=== PATIENT | male | born 1940 | race Caucasian/White ===

== ENCOUNTER 2017-06-03 13:32 | Inpatient (IN) | payer MEDICARE, OTHER ==
[~2017-06-03] VITALS: Ht 180.3 cm; Wt 75.0 kg
[~2017-06-03 13:32] MED LIST: ACET650T13; ALBU90AE; ASPI-611 PO; ATOR40TA72; CHOL100046 PO; FERR325T39 PO; GUAI473S11 PO; OMEP40CA37 PO; RIVA20TA PO; SENN-61 PO; [UNRECOGNIZED DRUG - CODE] PO; calcium chloride 100 MG/1 ML inj IV ONE; epiNEPHrine 0.1mg/ml 10ml syringe ONE; sodium bicarbonate (8.4%) 1 mEq/ml syringe ONE
[2017-06-03] MEDS ORDERED: pantoprazole 40 MG vial IV ONE (13:50)
[2017-06-03] MEDS ORDERED: normal saline 1000ML IV soln IVB ONE (13:50)
[2017-06-03 14:01] LABS: BASOPHILS # (AUTO) 0.1 X10'3 (0-0.2); BASOPHILS % (AUTO) 0.8 % (0-1); EOSINOPHILS # (AUTO) 0.2 X10'3 (0-0.9); EOSINOPHILS % (AUTO) 2.2 % (0-6); HEMATOCRIT 38.1 % (42.0-52.0); HEMOGLOBIN 13.5 g/dl (14.0-17.9); LYMPHOCYTES # (AUTO) 0.8 X10'3 (1.1-4.8); MEAN CORPUSCULAR HEMOGLOBIN 32.4 PG (27.0-31.0); MEAN CORPUSCULAR HGB CONC 35.4 % (33.0-36.5); MEAN CORPUSCULAR VOLUME 91.5 FL (78-98); MEAN PLATELET VOLUME 7.4 FL (7.4-10.4); MONOCYTES # (AUTO) 0.7 X10'3 (0-0.9); MONOCYTES % (AUTO) 6.9 % (2-12); NEUTROPHILS # (AUTO) 8.8 X10'3 (1.8-7.7); NEUTROPHILS % (AUTO) 82.1 % (42-75); PLATELET COUNT 212 X10'3 (140-440); RED BLOOD COUNT 4.16 X10'6 (4.70-6.10); RED CELL DISTRIBUTION WIDTH 13.9 % (11.5-14.5); WHITE BLOOD COUNT 10.7 X10'3 (4.5-11.0)
[2017-06-03 14:12] LABS: PARTIAL THROMBOPLASTIN TIME 26 SECONDS (22-32); PROTHROMBIN TIME 10.4 SECONDS (9.0-12.0)
[2017-06-03 14:16] LABS: ALANINE AMINOTRANSFERASE 21 U/L (12-78); ALBUMIN 3.2 G/DL (3.4-5.0); ALKALINE PHOSPHATASE 59 IU/L (46-116); ANION GAP 4 (8-16); ASPARTATE AMINO TRANSFERASE 20 U/L (10-37); BILIRUBIN,TOTAL 0.6 MG/DL (0.1-1.0); BLOOD UREA NITROGEN 23 MG/DL (7-18); BUN/CREATININE RATIO 20.9 (5.4-32.0); CALCIUM 8.5 MG/DL (8.5-10.1); CHLORIDE 96 MMOL/L (99-107); GLUCOSE 127 MG/DL (70-104); LIPASE 98 U/L (73-393); MAGNESIUM 1.9 MG/DL (1.5-2.4); POTASSIUM 4.9 MMOL/L (3.5-5.1); SODIUM 127 MMOL/L (135-145); TOTAL CARBON DIOXIDE 27.2 MMOL/L (24-32); TOTAL PROTEIN 6.5 G/DL (6.4-8.2); eGFR 65 ML/MIN
[2017-06-03] MEDS ORDERED: metoclopramide 5 mg/ml inj IV PRN (15:25)
[2017-06-03] MEDS ORDERED: acetaminophen 325mg tablet PO PRN (15:25)
[2017-06-03] MEDS ORDERED: magnesium 2GM in 50ml NS 50 ML IV PRN (15:25)
[2017-06-03] MEDS ORDERED: magnesium hydroxide 30ml (MOM) UD suspension PO PRN (15:25)
[2017-06-03] MEDS ORDERED: potassium Cl 20 mEq SR tablet PO PRN ×2 (15:25)
[2017-06-03] MEDS ORDERED: morphine 2 MG/ML inj. syringe IV PRN (15:25)
[2017-06-03] MEDS ORDERED: ondansetron/PF 4mg/2ml inj IV PRN (15:25)
[2017-06-03] MEDS ORDERED: potassium Cl 40MEQ/NS 500ml 500 ML IV PRN ×2 (15:25)
[2017-06-03] MEDS ORDERED: magnesium Cl slow-release 64mg tablet PO PRN (15:25)
[2017-06-03] MEDS ORDERED: mag hydrox/Alum hydrox/simeth 30ml oral suspension PO PRN (15:25)
[2017-06-03] MEDS ORDERED: HYDROmorphone 1 mg/ml syringe IV PRN (15:25)
[2017-06-03] MEDS ORDERED: magnesium 4gm in 100ml NS 100 ML IV PRN (15:25)
[2017-06-03] MEDS ORDERED: HYDROmorphone 2mg/ml vial IV PRN (15:28)
[2017-06-03 15:33] LABS: OCCULT BLOOD STOOL POSITIVE (Neg)
[2017-06-03] MEDS: normal saline 1000ml 1,000 ML IV SCH (17:31)
[2017-06-03 19:20] LABS: CLARITY,URINE SLIGHTLY CLOUDY (Clear); COLOR,URINE YELLOW (Yellow); GLUCOSE, URINE NEGATIVE (Neg); KETONES,URINE TRACE mg/dl (Neg); LEUKOCYTE ESTERASE ,URINE MODERATE (Neg); NITRITES, URINE POSITIVE (Neg); OCCULT BLOOD,URINE LARGE (Neg); PROTEIN,URINE NEGATIVE (Neg); UROBILINOGEN,URINE 0.2 E.U/dL (0.2-1.0)
[2017-06-03 19:26] LABS: UA COLLECTION TYPE CLN CATCH MIDSTREAM
[2017-06-03 19:28] LABS: AMORPHOUS URATES 2+; BACTERIA,URINE 3+ /HPF (Neg); MUCUS STRANDS NONE SEEN /LPF (Neg); RBC,URINE 50-100 /HPF (0-2); SQUAMOUS EPITHELIAL CELL,UR FEW /LPF (FEW); WBC,URINE 20-30 /HPF (0-4)
[2017-06-03] MEDS: pantoprazole 40 MG vial IV SCH (20:27)
[2017-06-03 21:00] VITALS: BP 138/68
[2017-06-04] VITALS (21 sets, daily range): BP systolic 50–150; BP diastolic 34–97
[2017-06-04] MEDS: normal saline 1000ml 1,000 ML IV SCH ×3 (01:23→21:22)
[2017-06-04 05:48] LABS: BASOPHILS # (AUTO) 0.1 X10'3 (0-0.2); BASOPHILS % (AUTO) 0.7 % (0-1); EOSINOPHILS # (AUTO) 0.3 X10'3 (0-0.9); EOSINOPHILS % (AUTO) 4.1 % (0-6); HEMATOCRIT 37.9 % (42.0-52.0); LYMPHOCYTES # (AUTO) 1.3 X10'3 (1.1-4.8); LYMPHOCYTES % (AUTO) 15.9 % (21-51); MEAN CORPUSCULAR HEMOGLOBIN 32.5 PG (27.0-31.0); MEAN CORPUSCULAR HGB CONC 34.3 % (33.0-36.5); MEAN CORPUSCULAR VOLUME 94.8 FL (78-98); MONOCYTES # (AUTO) 0.9 X10'3 (0-0.9); MONOCYTES % (AUTO) 11.3 % (2-12); NEUTROPHILS # (AUTO) 5.5 X10'3 (1.8-7.7); PLATELET COUNT 228 X10'3 (140-440); RED CELL DISTRIBUTION WIDTH 14.1 % (11.5-14.5); WHITE BLOOD COUNT 8.1 X10'3 (4.5-11.0)
[2017-06-04 05:53] LABS: ALBUMIN 3.1 G/DL (3.4-5.0); ANION GAP 6 (8-16); BLOOD UREA NITROGEN 24 MG/DL (7-18); CALCIUM 8.4 MG/DL (8.5-10.1); CHLORIDE 102 MMOL/L (99-107); GLUCOSE 82 MG/DL (70-104); MAGNESIUM 1.8 MG/DL (1.5-2.4); POTASSIUM 4.3 MMOL/L (3.5-5.1); SODIUM 132 MMOL/L (135-145); TOTAL CARBON DIOXIDE 23.7 MMOL/L (24-32); eGFR > 90 ML/MIN
[2017-06-04] MEDS ORDERED: K and/or MAG REPLACEMENT MC SCH (08:00)
[2017-06-04] MEDS: pantoprazole 40 MG vial IV SCH (09:18)
[2017-06-04] MEDS ORDERED: normal saline 1000ml 1,000 ML IV SCH (13:01)
[2017-06-04] MEDS ORDERED: fentaNYL/PF 50MCG/1 ML 2ML syringe IV PRN (13:05)
[2017-06-04] MEDS ORDERED: MIDAZolam 1mg/ml 10ml vial IV PRN (13:05)
[2017-06-04] MEDS ORDERED: simethicone 40mg/0.6ml oral drops 30ml MC ONE (13:05)
[2017-06-04] MEDS ORDERED: LIDOcaine Viscous 15ml cup PO ONE (13:05)
[2017-06-04] MEDS ORDERED: LIDOcaine Viscous 15ml cup ONE (14:17)
[2017-06-04] MEDS ORDERED: MIDAZolam 1mg/ml 10ml vial ONE (14:17)
[2017-06-04] MEDS ORDERED: fentaNYL/PF 50MCG/1 ML 2ML syringe ONE (14:17)
[2017-06-04] MEDS ORDERED: morphine 5 MG/ML injection IV PRN (17:17)
[2017-06-04 19:20] LABS: HEMATOCRIT 31.6 % (42.0-52.0); HEMOGLOBIN 10.7 g/dl (14.0-17.9); MEAN CORPUSCULAR VOLUME 94.1 FL (78-98); MEAN PLATELET VOLUME 7.5 FL (7.4-10.4); PLATELET COUNT 212 X10'3 (140-440); RED BLOOD COUNT 3.36 X10'6 (4.70-6.10); RED CELL DISTRIBUTION WIDTH 14.3 % (11.5-14.5); WHITE BLOOD COUNT 9.6 X10'3 (4.5-11.0)
[2017-06-04] MEDS: pantoprazole 40MG/NS 100ML BAG 100 ML IV SCH (21:10)
[2017-06-04 23:29] LABS: BASOPHILS # (AUTO) 0.1 X10'3 (0-0.2); BASOPHILS % (AUTO) 0.6 % (0-1); EOSINOPHILS # (AUTO) 0.4 X10'3 (0-0.9); EOSINOPHILS % (AUTO) 3.8 % (0-6); HEMOGLOBIN 7.2 g/dl (14.0-17.9); LYMPHOCYTES # (AUTO) 3.1 X10'3 (1.1-4.8); LYMPHOCYTES % (AUTO) 30.5 % (21-51); MEAN CORPUSCULAR HEMOGLOBIN 31.8 PG (27.0-31.0); MEAN CORPUSCULAR HGB CONC 33.3 % (33.0-36.5); MEAN CORPUSCULAR VOLUME 95.4 FL (78-98); MEAN PLATELET VOLUME 7.4 FL (7.4-10.4); MONOCYTES # (AUTO) 0.9 X10'3 (0-0.9); MONOCYTES % (AUTO) 9.3 % (2-12); NEUTROPHILS # (AUTO) 5.6 X10'3 (1.8-7.7); NEUTROPHILS % (AUTO) 55.8 % (42-75); PLATELET COUNT 202 X10'3 (140-440); RED BLOOD COUNT 2.26 X10'6 (4.70-6.10); RED CELL DISTRIBUTION WIDTH 14.2 % (11.5-14.5); WHITE BLOOD COUNT 10.1 X10'3 (4.5-11.0)
[2017-06-04 23:37] LABS: HEMATOCRIT 21.6 % (42.0-52.0)
[2017-06-04 23:45] LABS: ALANINE AMINOTRANSFERASE 10 U/L (12-78); ALBUMIN 1.8 G/DL (3.4-5.0); ALBUMIN/GLOBULIN RATIO 0.9 (1.1-1.5); ALKALINE PHOSPHATASE 34 IU/L (46-116); ANION GAP 11 (8-16); ASPARTATE AMINO TRANSFERASE 13 U/L (10-37); BILIRUBIN,TOTAL 0.3 MG/DL (0.1-1.0); BLOOD UREA NITROGEN 28 MG/DL (7-18); BUN/CREATININE RATIO 31.1 (5.4-32.0); CHLORIDE 109 MMOL/L (99-107); GLUCOSE 161 MG/DL (70-104); MAGNESIUM 1.6 MG/DL (1.5-2.4); POTASSIUM 5.2 MMOL/L (3.5-5.1); SODIUM 137 MMOL/L (135-145); TOTAL CARBON DIOXIDE 16.6 MMOL/L (24-32); TOTAL PROTEIN 3.9 G/DL (6.4-8.2); eGFR 82 ML/MIN
[2017-06-05] VITALS (14 sets, daily range): BP systolic 42–105; BP diastolic 23–60
[2017-06-05] MEDS ORDERED: octreotide inj. 1,250 MCG in normal saline 250ml IV soln 243.75 ML IV SCH (00:05)
[2017-06-05] MEDS ORDERED: calcium chloride 100 MG/1 ML inj IV ONE ×2 (00:05→03:05)
[2017-06-05] MEDS ORDERED: normal saline 1000ml 1,000 ML IV ONE (00:15)
[2017-06-05] MEDS ORDERED: octreotide 200mcg/ml 5ml vial ONE (01:01)
[2017-06-05] MEDS ORDERED: tranexamic acid inj. 750 MG in normal saline 100ml IV soln 92.5 ML IV ONE (01:40)
[2017-06-05] MEDS: pantoprazole 40MG/NS 100ML BAG 100 ML IV SCH (01:54)
[2017-06-05] MEDS ORDERED: tranexamic acid 100mg/ml inj. ONE (01:54)
[2017-06-05] MEDS ORDERED: NORepinephrine 8mg/ 250ml NS 250 ML IV ONE (02:36)
[2017-06-05 03:37] LABS: BASOPHILS % (AUTO) 0.3 % (0-1); EOSINOPHILS % (AUTO) 0.3 % (0-6); LYMPHOCYTES % (AUTO) 9.5 % (21-51); MEAN CORPUSCULAR HEMOGLOBIN 31.2 PG (27.0-31.0); MEAN CORPUSCULAR HGB CONC 34.4 % (33.0-36.5); MEAN CORPUSCULAR VOLUME 90.6 FL (78-98); MEAN PLATELET VOLUME 7.5 FL (7.4-10.4); MONOCYTES # (AUTO) 0.9 X10'3 (0-0.9); MONOCYTES % (AUTO) 8.1 % (2-12); NEUTROPHILS # (AUTO) 8.6 X10'3 (1.8-7.7); NEUTROPHILS % (AUTO) 81.8 % (42-75); PLATELET COUNT 82 X10'3 (140-440); RED BLOOD COUNT 2.24 X10'6 (4.70-6.10); WHITE BLOOD COUNT 10.6 X10'3 (4.5-11.0)
[2017-06-05] MEDS ORDERED: vasoPRESSIN 20 units/ml inj. ONE (03:44)
[2017-06-05 03:46] LABS: HEMATOCRIT 20.3 % (42.0-52.0)
[2017-06-05 03:47] LABS: INR 1.5 INR; PARTIAL THROMBOPLASTIN TIME 51 SECONDS (22-32); PROTHROMBIN TIME 15.6 SECONDS (9.0-12.0)
[2017-06-05 04:00] LABS: ALBUMIN 1.1 G/DL (3.4-5.0); ANION GAP 13 (8-16); BLOOD UREA NITROGEN 26 MG/DL (7-18); BUN/CREATININE RATIO 32.5 (5.4-32.0); CHLORIDE 118 MMOL/L (99-107); GLUCOSE 168 MG/DL (70-104); MAGNESIUM 1.1 MG/DL (1.5-2.4); POTASSIUM 4.6 MMOL/L (3.5-5.1); SODIUM 144 MMOL/L (135-145); eGFR > 90 ML/MIN
[2017-06-05 04:03] LABS: CALCIUM 5.8 MG/DL (8.5-10.1); TOTAL CARBON DIOXIDE 13.3 MMOL/L (24-32)
[2017-06-05] MEDS ORDERED: sodium bicarbonate (8.4%) 1 mEq/ml syringe IV ONE (04:05)
[2017-06-05 05:24] LABS: BASOPHILS # (AUTO) 0.1 X10'3 (0-0.2); BASOPHILS % (AUTO) 0.7 % (0-1); EOSINOPHILS # (AUTO) 0.1 X10'3 (0-0.9); EOSINOPHILS % (AUTO) 0.9 % (0-6); HEMOGLOBIN 8.1 g/dl (14.0-17.9); LYMPHOCYTES # (AUTO) 1.9 X10'3 (1.1-4.8); LYMPHOCYTES % (AUTO) 14.7 % (21-51); MEAN CORPUSCULAR HEMOGLOBIN 29.7 PG (27.0-31.0); MEAN CORPUSCULAR HGB CONC 33.7 % (33.0-36.5); MEAN CORPUSCULAR VOLUME 88.1 FL (78-98); MEAN PLATELET VOLUME 7.2 FL (7.4-10.4); MONOCYTES # (AUTO) 0.9 X10'3 (0-0.9); NEUTROPHILS # (AUTO) 9.8 X10'3 (1.8-7.7); NEUTROPHILS % (AUTO) 76.7 % (42-75); PLATELET COUNT 164 X10'3 (140-440); RED BLOOD COUNT 2.72 X10'6 (4.70-6.10); RED CELL DISTRIBUTION WIDTH 14.7 % (11.5-14.5); WHITE BLOOD COUNT 12.8 X10'3 (4.5-11.0)
[2017-06-05 06:15] LABS: TOTAL CELLS COUNTED 100
[2017-06-05 06:16] LABS: ANISOCYTOSIS 1+; BURR CELLS 1+; MICROCYTOSIS 1+; PLATELET ESTIMATE NORMAL
[2017-06-05 06:17] LABS: POIKILOCYTOSIS FEW
== END 2017-06-05 05:52 | disposition expired | DRG 378 ==
LOC: ER 13:32 → ED HOLD 15:22 → CMPBEDREQ 20:47 → SUR 3N 21:00 → ICU 2S 06-04 18:36
PROVIDERS: ADMIT Internal Medicine; ATTEND Internal Medicine
PROC: 0DJ08ZZ Inspection of Upper Intestinal Tract, Via Natural or Artificial Opening Endoscopic (ICD-10-PCS; 2017-06-04)
PROC: 30233L1 Transfusion of Nonautologous Fresh Plasma into Peripheral Vein, Percutaneous Approach (ICD-10-PCS; principal; 2017-06-05)
PROC: 5A12012 Performance of Cardiac Output, Single, Manual (ICD-10-PCS; 2017-06-05)
PROC: 30233N1 Transfusion of Nonautologous Red Blood Cells into Peripheral Vein, Percutaneous Approach (ICD-10-PCS; 2017-06-05)
PROC: 30233R1 Transfusion of Nonautologous Platelets into Peripheral Vein, Percutaneous Approach (ICD-10-PCS; 2017-06-05)
PROC: 30233M1 Transfusion of Nonautologous Plasma Cryoprecipitate into Peripheral Vein, Percutaneous Approach (ICD-10-PCS; 2017-06-05)
PROC: 30233K1 Transfusion of Nonautologous Frozen Plasma into Peripheral Vein, Percutaneous Approach (ICD-10-PCS; 2017-06-05)
PROC: 0BH17EZ Insertion of Endotracheal Airway into Trachea, Via Natural or Artificial Opening (ICD-10-PCS; 2017-06-05)
PROC: 02HV33Z Insertion of Infusion Device into Superior Vena Cava, Percutaneous Approach (ICD-10-PCS; 2017-06-05)
DX: K26.4 Chronic or unspecified duodenal ulcer with hemorrhage (principal); E87.1 Hypo-osmolality and hyponatremia; I95.9 Hypotension, unspecified; I46.9 Cardiac arrest, cause unspecified; D64.9 Anemia, unspecified; G89.29 Other chronic pain; M54.9 Dorsalgia, unspecified; I25.10 Atherosclerotic heart disease of native coronary artery without angina pectoris; I73.9 Peripheral vascular disease, unspecified; K29.70 Gastritis, unspecified, without bleeding; F17.210 Nicotine dependence, cigarettes, uncomplicated; Z90.49 Acquired absence of other specified parts of digestive tract; Z91.19 Patient's noncompliance with other medical treatment and regimen; Z95.1 Presence of aortocoronary bypass graft; Z79.82 Long term (current) use of aspirin; Z79.01 Long term (current) use of anticoagulants; Z79.899 Other long term (current) drug therapy; Z71.6 Tobacco abuse counseling
CPT/HCPCS: 36415; 71045; 74176; 80048; 80053; 81001; 82272; 82330; 83605; 83690; 83735; 84484; 85025; 85027; 85384; 85610; 85730; 86885; 86900; 86901; 86920; 87070; 87077; 87088; 87186; 92950; 93005; 94760; 96361; 96374; 99285; A4353; A4620; A6213; C1751; C1758; C9113; G0500; J0171; J2250; J2354; J3010; J3490; J7030; J7040; P9012; P9016; P9035; P9059